=== PATIENT | male | born 1965 | race African-American/Black ===

== ENCOUNTER → 2016-10-24 | Outpatient (CLI) | payer OTHER ==
--- NOTE | ~2016-10-24 | CR58 ---
[facility] A Service of [facility] RADIOLOGY TEXT RESULTS PATIENT: ANA ROSA DIAS LOCATION: [facility] : 61 UNIT #: [id number] AGE: [address]: Justice Ayala MD SEX: M ORDER DR: [id number] [facility] [address] [place], [place] [address] [id number] O MR#: [id number] Acc #: [id number] NAME: ANA ROSA DIAS : 1965 SEX: M STUDY DATE/TIME: 10/24/2016 10:02 UNIT: [facility] ROOM: STUDY DESCRIPTION: CR Cervical Spine 2 or 3 Views Attending Physician: Justice Ayala M.D. Referring Physician: Justice Ayala M.D. Ordering Physician: Justice Ayala M.D. Primary Care Physician: Justice Ayala M.D. MEDICAL IMAGING REPORT This report is preliminary unless electronic signature is present EXAM Cervical spine series HISTORY Neck pain, spasms and limited range of motion over the past 3 months. TECHNIQUE 3 views of the cervical spine were obtained. FINDINGS Cervical straightening is noted. Degenerative changes are seen in all cervical discs. There is mild degenerative disc disease at C2-3 and C3-4 with moderate disc space narrowing and small osteophytes at C4-5. There is more advanced degenerative change at C5-6, C6-7 and C7-T1 with disc space collapse and both anterior and posterior osteophyte formation. In addition to the disc disease there is moderate bilateral facet hypertrophy at C2-3. There is mild facet disease throughout the [id number] cervical facets. There is no evidence of fracture or bone destruction. No prevertebral soft tissue swelling is noted. IMPRESSION Multilevel degenerative disc and facet disease as described above. Degenerative disc disease is most prominent in the lower cervical levels. Dictated by... Ana Rosa Rodriguez M.D. THIS IS AN ELECTRONICALLY VERIFIED REPORT Ana Rosa Rodriguez M.D. at 10/25/2016 4:54 PM DIDIER/dorinda TD: 10/25/2016 14:35 JOB #: [id number] [facility] A Service of [facility] & [facility] RADIOLOGY TEXT RESULTS PATIENT: ANA ROSA DIAS LOCATION: [facility] #: [id number] : [birth year] UNIT #: [id number] AGE: [address]: Justice Ayala MD SEX: M ORDER DR: MEDICAL IMAGING REPORT Page 1 of 1 COPY
== END | disposition home or self-care (01) ==
LOC: CRAD 09:25
DX: M54.2 Cervicalgia (principal); M50.31 Other cervical disc degeneration, high cervical region; M50.322 Other cervical disc degeneration at C5-C6 level; M50.323 Other cervical disc degeneration at C6-C7 level; M50.33 Other cervical disc degeneration, cervicothoracic region
CPT/HCPCS: 72040